=== PATIENT | female | born 1990 | race Caucasian/White ===

== ENCOUNTER 2021-09-30 15:23 | Emergency (ER) | payer OTHER, SELFPAY ==
[2021-09-30 15:23] VITALS: BP 92/66; PULSE 103; RESP 16; TEMP 36.9; O2SAT 100; BMI 25.0
[2021-09-30] MEDS: Ondansetron 4 MG/2 ML Vial IV (15:50)
[2021-09-30] MEDS: 0.9% Normal Saline 1,000 ML 1000 ML IV (15:50)
--- NOTE | 2021-09-30 16:01 | ED.VIS.GI ---
HPI HPI - GI History of Present Illness Chief Complaint: Nausea/Vomiting Informant: patient Abdominal Pain/Flank Pain Onset: Today Context: Gradual Onset Timing: Continuous Current Severity: Mild Maximum Severity: Mild Worsened by: Nothing Relieved by: Nothing Nausea/Vomiting/Emesis GI Symptom: Positive for Nausea and Vomiting Onset: Today Quality: Positive for Nonbilious Severity: Mild Diarrhea/Melena/Hematochezia GI Symptom: Negative for Diarrhea, Melena and Hematochezia Associated Symptoms Associated Symptoms: Negative for Dysuria and Frequency Narrative Narrative: 31-year-old female G2, P1 Ab0. Currently 16 weeks . Also has a history of hypothyroidism for which she is on Synthroid. Her due date is 03/14/2022. States she has done well with this . She denies any diarrhea. No dysuria or fever. Thought she may have over eaten last night. [place] is from out of town and they are visiting family and said there is a lot of food. Today she has had nausea and vomiting throughout the day. Denies any significant abdominal pain. Prior similar symptoms: Yes Recent Illness/Hospitalization: No PFSH PFSH Home Medications ondansetron 4 mg PO Q4H #7 tab 09/30/21 [Rx Last Taken Unknown] Allergy/AdvReac Type Severity Reaction Status Date / Time No Known Allergies Allergy Verified 09/30/21 15:26 ROS ROS ED ROS Narrative Nausea and vomiting. Review of Systems ROS Unobtainable: Denies due to encephalopathy Constitutional Constitutional ED: Denies fever(s) ENT ENT ED: Denies ear pain Cardiovascular Cardiovascular: Denies chest pain Respiratory/Chest Respiratory/Chest: Denies dyspnea Gastrointestinal Gastrointestinal: Reports nausea and vomiting; Denies abdominal pain, constipation, diarrhea or melena Genitourinary Genitourinary ED: Denies dysuria or hematuria Musculoskeletal Musculoskeletal: Denies myalgias Integumentary Denies rash Neurologic Neurologic: Denies headache(s) Psychiatric Psychiatric: Denies depression Endocrine Endocrinology: Denies polyuria Hematologic/Lymphatic Hematologic/Lymphatic: Denies easy bruising Allergic/Immunologic Allergic/Immunologic ED: Denies urticaria EXAM Physical Exam Narrative Exam Narrative: 22-year-old female no acute distress vital signs stable afebrile. Blood pressure is low at 92/66. She does not look septic or toxic. HEENT exam mildly dry mucous memories. Neck nontender no lymphadenopathy. Lungs clear to auscultation bilaterally. Heart regular rhythm rate about 103 no murmur. Abdomen soft, nontender, nondistended normal bowel sounds no peritoneal signs. Both the right upper and right lower quadrants are unremarkable. No hernia. No mass. No distention or signs of obstruction. Moving all 4 extremities. Nontender no edema. Back nontender. Neurologically she is awake and alert with no focal motor deficits. Benign exam. Patient clinically looks well. Const Vital Signs: 09/30/21 15:23 Temperature 98.4 F Temperature Source Oral Pulse Rate 103 H Respiratory Rate 16 Blood Pressure 92/66 Blood Pressure Mean 74 Pulse Ox 100 Oxygen Delivery Method Room Air Positive well nourished and well developed; Negative for obese, cachectic, contractures or unkempt General Appearance ED: well developed and NAD; Negative for unkempt, cachectic, contractures or pallor Nutritional Appearance: Negative for cachectic or obese HEENT Reports dry mucous membranes normocephalic and atraumatic Mouth ED: Yes dry mucous membranes Mouth: dry mucous membranes Eyes PERRL and EOMs intact bilaterally Neck no lymphadenopathy, supple and no JVD General: Negative for tenderness Resp normal respiratory effort and clear to auscultation bilaterally Auscultation: Negative for rales, rhonchi or wheezes Cardio regular rhythm and no murmurs Rate: tachycardic GI non-tender, non-distended and no masses Inspection: Negative for abdominal distention Auscultation: normoactive bowel sounds; Negative for hypoactive bowel sounds Palpation: soft; Negative for tender, guarding, rigid or rebound tenderness present Back/Spine no CVA tenderness General Back: Negative for CVA tenderness Extremity full ROM General Extremety ED: Negative for edema or tenderness General Extremity: Negative for edema Neuro moves all extremities Sensorium / Orientation: alert, oriented to person, oriented to place and oriented to time; Negative for orientation impaired, confused, lethargic or stuporous Motor Exam: strength 5/5 throughout Psych mental status grossly normal and thought process normal Appearance: Negative for unkempt Attitude: No agitated Mood & Affect: Negative for depressed or tearful Skin no wounds General Skin Exam: Negative for jaundice or pallor Lesions: no lesions Rashes: no rashes MDM MDM MDM Narrative Medical decision making narrative: 31-year-old female with nausea and vomiting. Exam is benign. She will be treated with IV fluids and IV Zofran. Reassessed and p.o. challenge. Patient requested a Covid test be done. Repeat exam patient is doing well. Abdomen is benign. She received a liter of normal saline. Nausea is resolved with Zofran. She feels comfortable being discharged home. Lab Data Attestation: I reviewed the patient's lab results. Lab results narrative: Rapid Covid antigen test was negative. Discharge Plan Triage Chief Complaint: Nausea/Vomiting ED Provider: Soy Webb Dx/Rx/DC Orders Instructions: ED Vomiting (Adult) Prescriptions: New ondansetron 4 mg tablet,disintegrating 4 mg PO Q4H Qty: 7 RF: 0 Referrals: KYLER LEBRON [Other] Activity Restrictions/Additional Instructions: Plenty of fluids and rest. Increase diet slowly as tolerated. Zofran as needed for nausea. Disposition Disposition: Home, Self Care
[2021-09-30 17:27] VITALS: BP 125/76; PULSE 80; RESP 16; O2SAT 97
== END 2021-09-30 17:29 | disposition home or self-care (01) ==
PROVIDERS: Emergency Provider Emergency Medicine
DX: O21.9 Vomiting of pregnancy, unspecified (principal); Z3A.16 16 weeks gestation of pregnancy
CPT/HCPCS: 87426; 96361; 96374; 99282; J7030; A4216; J2405